=== PATIENT | male | born 1980 | race Caucasian/White ===

== ENCOUNTER 2021-06-01 06:10 | Emergency (ER) | payer OTHER ==
[~2021-06-01] VITALS: Ht 175.3 cm; Wt 55.0 kg
--- OUTSIDE RECORDS SUMMARY | 2021-06-01 06:14 | XMS ---
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 EClaudy VISIT COUNT (12 MO.) Brynn Huffman TOTAL 1 NOTE: Visits indicate total known visits. ED/UCC VISIT TRACKING (12 MO.) 06/01/2021 06:11 [facility] TYPE: Emergency COMPLAINT: - R HAND PAIN, NUMBNESS, SWOLLEN INPATIENT VISIT TRACKING (12 MO.) No inpatient visits to display in this time frame [email or web address]
[2021-06-01] MEDS ORDERED: IBU800 MG PO (06:27)
== END 2021-06-01 06:37 | disposition home or self-care (01) ==
LOC: ED 06:10
DX: M79.641 Pain in right hand (principal)
CPT/HCPCS: 99283